=== PATIENT | male | born 1980 | race Caucasian/White ===

== ENCOUNTER 2022-07-15 22:11 | Emergency (ER) | payer SELFPAY ==
[~2022-07-15] VITALS: Ht 180.3 cm; Wt 81.6 kg
--- NOTE | 2022-07-15 22:12 | NUR ---
KIN NUGENT, TAKEN TO CHAIR B
[2022-07-15 22:13] VITALS: BP 146/98
[2022-07-15 22:15] VITALS: BP 146/98
[2022-07-15] MEDS ORDERED: IBUPROFEN 800 MG TAB PO ONE (22:25)
--- NOTE | 2022-07-15 22:41 | NUR ---
PT TAKEN TO RADIOLOGY VIA WC, ACCOMPANIED W/ CYNDY NUGENT
--- NOTE | 2022-07-15 22:56 | NUR ---
PT RETURNED FROM RADIOLOGY VIA
--- NOTE | 2022-07-15 23:07 | NUR ---
pt refused tdap and ibuprofen.
--- NOTE | 2022-07-15 23:44 | NUR ---
Discharged with [place] [id number]
--- NOTE | 2022-07-15 23:44 | NUR ---
Patient discharged. Written and verbal after care instructions given and explained. Patient verbalized understanding. With Police in custody. All questions addressed prior to discharge. Advised to follow up with PMD.
== END 2022-07-15 23:44 ==
LOC: MED 22:11
DX: M54.2 Cervicalgia (principal); M25.561 Pain in right knee; M25.562 Pain in left knee; Z02.89 Encounter for other administrative examinations
CPT/HCPCS: 72050; 73562; 90715; 99284